=== PATIENT | female | born 1950 | race Caucasian/White ===

== ENCOUNTER 2023-12-14 20:35 | Emergency (ER) | payer MEDICARE, SELFPAY ==
[2023-12-14 20:38] VITALS: BP 151/73; PULSE 95; RESP 16; TEMP 36.6; O2SAT 100
[2023-12-14 21:02] LABS: Basophils Percent Auto 0.2 % (0.2-1.2); Eosinophils Absolute Auto 0.2 K/mm3 (0-0.3); Eosinophils Percent Auto 1.5 % (0-4.4); Hemoglobin 12.1 g/dL (12.0-15.0); Immature Granulocyte Absolute 0.03 K/mm3 (0.00-0.031); Immature Granulocyte Percent A 0.2 % (0-0.5); Lymphocytes Absolute Auto 2.76 K/mm3 (0.9-3.2); Lymphocytes Percent Auto 20.9 % (18.3-44.2); Mean Corpuscular Hemoglobin 25.2 pg (26-34); Mean Corpuscular Volume 81.1 fl (80-100); Mean Platelet Volume 9.9 fl (7.4-10.4); Monocytes Absolute Auto 1.2 K/mm3 (0.1-0.6); Monocytes Percent Auto 9.4 % (2.6-8.5); Neutrophils Absolute Auto 8.9 K/mm3 (1.3-6.7); Neutrophils Percent Auto 67.8 % (45.5-73.1); Platelet Count Result 307 k/mm3 (150-375); Red Blood Count 4.81 M/mm3 (4.2-5.4); Red Cell Distribution Width 13.8 % (11.5-14.5); White Blood Count 13.2 K/mm3 (4.5-10.0)
[2023-12-14 21:13] LABS: Alanine Aminotransferase 26 U/L (6-35); Albumin Level 4.5 g/dL (3.5-5.1); Alkaline Phosphatase 78 U/L (38-126); Anion Gap 9 mmol/L (8-16); Aspartate Amino Transferase 39 U/L (14-36); Bilirubin,Total 0.5 mg/dL (0.2-1.3); Blood Urea Nitrogen 15 mg/dL (7-17); Carbon Dioxide 25 mmol/L (22-30); Chloride 101 mmol/L (98-107); Estimated CRCL calculation 63 ml/min; Estimated Glomerular Filt Rate > 60; Glucose 120 mg/dL (65-110); Sodium 135 mmol/L (137-145)
[2023-12-14 21:20] LABS: Prothrombin Time 13.7 Seconds (11.1-14.7)
[2023-12-14 21:21] LABS: Partial Thromboplastin Time 38.6 SECONDS (22.3-36.8)
--- NOTE | 2023-12-14 22:56 | ED.GENADULT ---
HPI - General Adult General Chief complaint: GI Bleed Stated complaint: bloody stool/diarrhea Time Seen by Provider: 12/14/23 22:38 Source: patient Mode of arrival: ambulatory Limitations: no limitations History of Present Illness HPI narrative: This is a 73-year-old female with PMH of diverticulosis, diverticulitis who presents to the ED with chief complaint of lower abdominal discomfort beginning earlier this evening. Patient reports she has had a couple of loose stools and described as mucousy. She was concerned because she wiped she saw some dark red blood. Denies melena. As I interview the patient she states that her abdominal pain has resolved since arriving to the ER. Denies fevers, chills, nausea, vomiting, urinary symptoms. Related Data Allergies Allergy/AdvReac Type Severity Reaction Status Date / Time Penicillins Allergy Rash Verified 12/14/23 20:37 Sulfa (Sulfonamide Allergy Rash Verified 12/14/23 20:37 Antibiotics) Review of Systems Review of Systems: All systems as dictated in HPI Exam Narrative: GENERAL: Well-appearing, well-nourished, and in no acute distress. HEAD: Normocephalic, atraumatic. EYES: PERRLA and EOMI. ENT: Nares clear, no rhinorrhea or epistaxis. Mucous membranes moist. Oropharynx without tonsillar hypertrophy exudate or other lesions. NECK: Supple. No adenopathy or masses. CHEST: No respiratory distress. Clear to auscultation. No wheezes rales or rhonchi HEART: Regular rate and rhythm. No murmur heard. Normal peripheral pulses. ABDOMEN: Soft, grossly nontender, nondistended, normal active bowel sounds. MSK: Normal range of motion. No edema. SKIN: Warm, dry, no rash. NEURO: Alert and oriented x3. No focal deficits. PSYCH: Normal mood and affect. Course Vital Signs Vital signs: Vital Signs Temperature 97.8 F 12/14/23 20:38 Pulse Rate 95 12/14/23 20:38 Respiratory Rate 16 12/14/23 20:38 Blood Pressure 151/73 H 12/14/23 20:38 Pulse Oximetry 100 12/14/23 20:38 Oxygen Delivery Room Air 12/14/23 20:38 Temperature 97.8 F 12/14/23 20:38 Pulse Rate 74 12/14/23 23:53 Respiratory Rate 15 12/14/23 23:53 Blood Pressure 114/72 12/14/23 23:53 Pulse Oximetry 100 12/14/23 23:53 Oxygen Delivery Room Air 12/14/23 20:38 Medical Decision Making MDM Narrative Medical decision making narrative: This is a 73-year-old female who presents to the ED for abdominal discomfort and some loose stools. She was originally concern for possible diverticulitis flare but states her pain is actually completely resolved without intervention here. Vitals are normal. Exam shows no tenderness. Lab work remarkable for slightly elevated white count of 13.2 but otherwise labs are normal. Urinalysis negative. She did complain of mild GI bleeding and her red blood cells and hemoglobin are normal. Given reassuring lab work, patient feels ready to go home without any further workup or imaging. Pt will be discharged in stable condition. Return precautions given and supportive measures discussed. Pt is understanding and agreeable with plan for discharge and follow-up with PCP. Vital Signs Vital Signs: Vital Signs Temperature 97.8 F 12/14/23 20:38 Pulse Rate 95 12/14/23 20:38 Respiratory Rate 16 12/14/23 20:38 Blood Pressure 151/73 H 12/14/23 20:38 Pulse Oximetry 100 12/14/23 20:38 Oxygen Delivery Room Air 12/14/23 20:38 Temperature 97.8 F 12/14/23 20:38 Pulse Rate 74 12/14/23 23:53 Respiratory Rate 15 12/14/23 23:53 Blood Pressure 114/72 12/14/23 23:53 Pulse Oximetry 100 12/14/23 23:53 Oxygen Delivery Room Air 12/14/23 20:38 Lab Data 12/14/23 20:54 12/14/23 20:54 Labs: Lab Results 12/14/23 12/14/23 Range/Units 20:54 23:30 WBC 13.2 H (4.5-10.0) K/mm3 RBC 4.81 (4.2-5.4) M/mm3 Hgb 12.1 (12.0-15.0) g/dL Hct 39.0 (37.0-47.0) % MCV 81.1 (80-100) fl
[2023-12-14 23:37] LABS: Appearance Urine Clear (Clear); Bilirubin Urine Negative (Negative); Blood Urine Negative (Negative); Color Urine Yellow (Yellow); Glucose Urine UA Negative (Negative); Ketones Urine Negative (Negative); Leukocyte Esterase Ur Negative LEU/UL (Negative); Nitrate Urine Negative (Negative); Protein Urine Negative (Negative); Specific Grav Ur 1.006 (1.001-1.035); Urobilinogen Urine 0.2 mg/dL (<2.0); pH Urine 5.5 (5.0-9.0)
[2023-12-14 23:40] VITALS: BP 132/66; PULSE 70; RESP 15; O2SAT 100
[2023-12-14 23:43] LABS: Add Urine Microscopic? NO
[2023-12-14 23:53] VITALS: BP 114/72; PULSE 74; RESP 15; O2SAT 100
== END 2023-12-15 00:01 | disposition home or self-care (01) ==
PROVIDERS: Emergency Medicine; Emergency Provider Physician Assistant
DX: K57.90 Diverticulosis of intestine, part unspecified, without perforation or abscess without bleeding (principal)
CPT/HCPCS: 36415; 80053; 81003; 85025; 85610; 85730; 86850; 86900; 86901; 99283

== ENCOUNTER 2024-03-17 07:36 | Outpatient (CLI) | payer MEDICARE, SELFPAY ==
[2024-03-17 08:24] LABS: Alanine Aminotransferase 19 U/L (6-35); Albumin Level 4.6 g/dL (3.5-5.1); Alkaline Phosphatase 55 U/L (38-126); Anion Gap 4 mmol/L (4-12); Aspartate Amino Transferase 30 U/L (14-36); Bilirubin,Total 0.8 mg/dL (0.2-1.3); Blood Urea Nitrogen 18 mg/dL (7-17); Calcium 9.4 mg/dL (8.4-10.2); Carbon Dioxide 28 mmol/L (22-30); Chloride 106 mmol/L (98-107); Cholesterol 169 mg/dL (0-200); Estimated Glomerular Filt Rate > 60; Glucose 88 mg/dL (65-110); HDL Direct 73 mg/dL; Potassium 4.5 mmol/L (3.4-5.0); Sodium 138 mmol/L (137-145); Triglycerides 72 mg/dL (<150)
[2024-03-17 08:29] LABS: Hemoglobin 12.9 g/dL (12.0-15.0); Mean Corpuscular HGB Conc 30.7 g/dl (32-36); Mean Corpuscular Hemoglobin 25.9 pg (26-34); Mean Corpuscular Volume 84.2 fl (80-100); Platelet Count Result 311 k/mm3 (150-375); Red Blood Count 4.99 M/mm3 (4.2-5.4); Red Cell Distribution Width 14.6 % (11.5-14.5); White Blood Count 4.7 K/mm3 (4.5-10.0)
[2024-03-17 08:35] LABS: LDL Cholesterol Direct 79 mg/dL
== END 2024-03-17 07:37 | disposition home or self-care (01) ==
LOC: ANHLAB 07:39
PROVIDERS: PCP Family Medicine; Visit Provider Family Medicine
DX: Z13.220 Encounter for screening for lipoid disorders (principal); E78.5 Hyperlipidemia, unspecified; I34.1 Nonrheumatic mitral (valve) prolapse
CPT/HCPCS: 36415; 80048; 80061; 80076; 84443; 85027

== ENCOUNTER 2024-04-25 12:15 | Outpatient (CLI) | payer MEDICARE, SELFPAY ==
--- NOTE | ~2024-04-25 | MM_ITS ---
EXAMINATION: MM screening tami BI w padmini HISTORY: Screening TECHNIQUE: Craniocaudal and mediolateral oblique 3-D tomosynthesis images were obtained and synthetic 2-D images were generated. CAD analysis was submitted and interpreted. COMPARISON: Comparison to multiple prior studies sequentially, with oldest reviewed study dated 04/2021. BREAST PARENCHYMAL COMPOSITION: Dense: The breasts are heterogeneously dense, which may obscure small masses FINDINGS: There is no evidence of suspicious mass, calcification, or architectural distortion to sugg est malignancy in either breast. There has been no suspicious interval change. IMPRESSION: 1. No mammographic evidence of malignancy. 2. Recommend routine screening mammography in one year. BI-RADS Category 1: Negative Reviewed, dictated and finalized at location B.
== END 2024-04-25 12:16 ==
PROVIDERS: PCP Family Medicine; Visit Provider Family Medicine
DX: Z12.31 Encounter for screening mammogram for malignant neoplasm of breast (principal)
CPT/HCPCS: 77063; 77067

== ENCOUNTER 2024-07-14 10:28 | Outpatient (CLI) | payer MEDICARE, SELFPAY ==
--- NOTE | ~2024-07-14 | XR_ITS ---
[id number] Ordering provider: Waldemar [place] NP History: . M79.671 - Pain in right foot . Comparison: None. FINDINGS: BONES: Fracture in the distal metaphysis of the middle metatarsal bone. Small bony fragment near to t he anterior talus may be a chip fracture or osteophyte. JOINT SPACES: Normal. No tarsal coalition. SOFT TISSUES: Normal. IMPRESSION: Healing fracture in the distal metaphysis of the middle metatarsal bone. Bony fragment near to the an terior talus. Reviewed, dictated and finalized at location A. IMPRESSION: Healing fracture in the distal metaphysis of the middle metatarsal bone. Bony f ragment near to the anterior talus.
== END 2024-07-14 10:29 | disposition home or self-care (01) ==
PROVIDERS: PCP Family Medicine
DX: S92.331A Displaced fracture of third metatarsal bone, right foot, initial encounter for closed fracture (principal); X58.XXXA Exposure to other specified factors, initial encounter
CPT/HCPCS: 73630

== ENCOUNTER 2024-07-27 16:03 | Outpatient (CLI) | payer MEDICARE, SELFPAY ==
[2024-07-27 17:54] LABS: Vitamin D 25 Hydroxy 62.8 ng/mL
== END 2024-07-27 16:04 | disposition home or self-care (01) ==
PROVIDERS: PCP Family Medicine; Visit Provider Podiatrist Foot & Ankle Surgery
DX: E55.9 Vitamin D deficiency, unspecified (principal)
CPT/HCPCS: 36415; 82306

== ENCOUNTER 2025-03-17 07:19 | Outpatient (CLI) | payer MEDICARE, SELFPAY ==
[2025-03-17 08:00] LABS: Hematocrit 44.8 % (37.0-47.0); Hemoglobin 14.3 g/dL (12.0-15.0); Mean Corpuscular HGB Conc 31.9 g/dl (32-36); Mean Corpuscular Hemoglobin 28.2 pg (26-34); Mean Corpuscular Volume 88.4 fl (80-100); Platelet Count Result 282 k/mm3 (150-375); Red Blood Count 5.07 M/mm3 (4.2-5.4); Red Cell Distribution Width 12.7 % (11.5-14.5); White Blood Count 5.2 K/mm3 (4.5-10.0)
[2025-03-17 08:13] LABS: Alanine Aminotransferase 22 U/L (6-35); Albumin Level 4.4 g/dL (3.5-5.1); Alkaline Phosphatase 54 U/L (38-126); Anion Gap 6 mmol/L (4-12); Aspartate Amino Transferase 32 U/L (14-36); Bilirubin,Total 0.7 mg/dL (0.2-1.3); Blood Urea Nitrogen 17 mg/dL (7-17); Calcium 9.8 mg/dL (8.4-10.2); Carbon Dioxide 29 mmol/L (22-30); Chloride 105 mmol/L (98-107); Cholesterol 175 mg/dL (0-200); Estimated Glomerular Filt Rate > 60; Glucose 93 mg/dL (65-110); HDL Direct 64 mg/dL; Potassium 4.6 mmol/L (3.4-5.0); Sodium 140 mmol/L (137-145); Triglycerides 93 mg/dL (<150)
[2025-03-17 08:24] LABS: LDL Cholesterol Direct 68 mg/dL
[2025-03-17 08:38] LABS: Vitamin D 25 Hydroxy 55.8 ng/mL
== END 2025-03-17 07:20 | disposition home or self-care (01) ==
LOC: ANHLAB 07:21
PROVIDERS: PCP Family Medicine; Visit Provider Nurse Practitioner Family
DX: E78.2 Mixed hyperlipidemia (principal); E55.9 Vitamin D deficiency, unspecified; I34.1 Nonrheumatic mitral (valve) prolapse
CPT/HCPCS: 36415; 80053; 80061; 82306; 84443; 85027

== ENCOUNTER 2025-04-04 11:09 | Outpatient (CLI) | payer MEDICARE, SELFPAY ==
--- NOTE | ~2025-04-04 | XR_ITS ---
AP view of the pelvis and AP and lateral views of the right hip Clinical history: Pain Findings: No acute fracture or dislocation is seen. Osseous alignment is anatomic. Bilateral hip and SI joint spaces are preserved. Soft tissues are unremarkable. Impression: No significant abnormality is seen. Reviewed, dictated and finalized at [facility]. Impression: No significant abnormality is seen.
== END 2025-04-04 11:10 | disposition home or self-care (01) ==
LOC: MICIMG 11:11
PROVIDERS: PCP Family Medicine; Visit Provider Nurse Practitioner Family
DX: M25.551 Pain in right hip (principal)
CPT/HCPCS: 73502

== ENCOUNTER 2025-05-01 09:42 | Outpatient (CLI) | payer MEDICARE, SELFPAY ==
--- NOTE | ~2025-05-01 | DEXA_ITS ---
Bone Density Report Name: JUNIOR ROSA Age: 75 Sex: Female Ethnicity: White Date of : 1950 Indication: postmenopausal; screening for osteoporosis; Referring Provider: Junie Carirngton Study: Bone densitometry was performed. Exam Date: May 01, 2025 Accession number: [id number] Bone Density: Region BMD T-score Z-score Classification AP Spine(L1-L4) 0.863 -1.7 0.7 Osteopenia Femoral Neck (Left) 0.623 -2.0 0.0 Osteopenia Total Hip (Left) 0.867 -0.6 1.1 Normal Femoral Neck (Right) 0.602 -2.2 -0.2 Osteopenia Total Hip (Right) 0.833 -0.9 0.8 Normal Total Hip Mean 0.850 -0.8 1.0 Normal World Health Organization criteria for BMD impression classify patients as: Normal (T-score at or above -1.0), Osteopenia (T-score between -1.0 and -2.5), or Osteoporosis (T-score at or below -2.5). 10-year Fracture Risk(1): Major Osteoporotic Fracture 13% Hip Fracture 3.4% Reported Risk Factors: [place] (), Neck BMD=0.602, BMI=22.4 (1) FRAX(R) Version 3.08. Fracture probability calculated for an untreated patient. Fracture probability may be lower if the patient has received treatment. Clinical Information Provided by Patient: Has used the following medications: Vitamin D, Calcium Patient maximum height was 68 Menopause Age: 51 Drinks caffeinated beverages Onset of menses at age 12 Number of children 2 Impression: The patient has low bone mass, based on the Right Femoral Neck T-score. The patient has an estimated ten-year risk of hip fracture of 3.4% and an estimated ten-year risk of major fracture of 13%, based on the WHO FRAX algorithm. Discussion: BONE DENSITY IS LOW AT ONE OR MORE SKELETAL SITES. THE PATIENT'S BMD AND CLINICAL RISK FACTORS CONTRIBUTE TO THIS PATIENT'S INCREASED RISK OF FRACTURE. This patient's lowest T-score is low at one or more skeletal sites. It meets the World Health Organization's (WHO) criteria for ?low bone mass? (T-score between -1.0 and -2.5). The patient's 10-year risk of hip fracture as calculated by FRAX exceeds the threshold where pharmacological therapy is recommended by the National Osteoporosis Foundation (NOF). However, all treatment decisions require clinical judgment and consideration of individual patient factors, including patient preferences, comorbidities, previous drug use, risk factors not captured in the FRAX model (e.g., frailty, falls, vitamin D deficiency, increased bone turnover, interval significant decline in bone density) and possible under or overestimation of fracture risk by FRAX. The patient should follow a healthful lifestyle (good nutrition with adequate calcium and vitamin D, and appropriate weight-bearing exercise). Follow-Up: Consider a repeat BMD and Vertebral Fracture Assessment (VFA) exam in 2 years or sooner if medically necessary, to reassess this patient's status. Reported by: MARVIN on 05/01/2025 10:03:00 AM. Reviewed, dictated and finalized at location A.
== END 2025-05-01 09:43 | disposition home or self-care (01) ==
LOC: MICIMG 09:44
PROVIDERS: PCP Family Medicine; Visit Provider Nurse Practitioner Family
DX: M85.89 Other specified disorders of bone density and structure, multiple sites (principal); Z78.0 Asymptomatic menopausal state
CPT/HCPCS: 77080

== ENCOUNTER 2025-06-13 14:52 | Outpatient (CLI) | payer MEDICARE, SELFPAY ==
--- NOTE | ~2025-06-13 | MM_ITS ---
EXAMINATION: MM screening tami BI w padmini HISTORY: Screening TECHNIQUE: Craniocaudal and mediolateral oblique 3-D tomosynthesis images were obtained and synthetic 2-D images were generated. CAD analysis was submitted and interpreted. COMPARISON: Comparison to multiple prior studies sequentially, with oldest reviewed study dated 01/23/2021. BREAST PARENCHYMAL COMPOSITION: The breasts are heterogeneously dense, which may obscure small masses. FINDINGS: There is no evidence of suspicious mass, calcification, or architectural distortion to suggest malignancy in either breast. Scattered benign-appearing calcifications are present. Biopsy clip in the left breast. IMPRESSION: 1. No mammographic evidence of malignancy. 2. Recommend routine screening mammography in one year. BI-RADS Category 2: Benign finding(s). Reviewed, dictated and finalized at location B.
== END 2025-06-13 14:53 | disposition home or self-care (01) ==
LOC: MICIMG 14:52
PROVIDERS: PCP Family Medicine; Visit Provider Family Medicine
DX: Z12.31 Encounter for screening mammogram for malignant neoplasm of breast (principal)
CPT/HCPCS: 77063; 77067